=== PATIENT | male | born 1975 | race American Indian/Alaskan Native ===

== ENCOUNTER 2022-02-28 10:35 | Emergency (ER) | payer SELFPAY ==
[2022-02-28 11:12] VITALS: BP 143/99
--- NOTE | 2022-02-28 13:53 | Emergency Department Report ---
- General Chief complaint: Skin/Abscess/Foreign Body Stated complaint: LUMP/NECK AND RIGHT HAND Time Seen by Provider: 02/28/22 13:52 Source: patient Mode of arrival: Ambulatory Limitations: No Limitations - History of Present Illness Initial comments: Is a 46-year-old male that comes to the emergency room with what appears to be either a lipoma or ganglion cyst on his left wrist and his right neck area. He states that came up suddenly over the last week. He noted the one on his neck after he had his large silver chains cleaned with chemicals. He denies any fever or chills. He has never had these before. He denies history of abscess. He has no systemic symptoms. He is ambulatory, not ill nontoxic on exam MD complaint: other Tetanus Up to Date: yes Improves with: none Worsens with: none Associated symptoms: denies other symptoms Treatments Prior to Arrival: none - Related Data Previous Rx's Medication Instructions Recorded Last Taken Type Sulfamethoxazole/Trimethoprim 1 each PO BID #10 tablet 02/28/22 Unknown Rx [Bactrim DS TAB] Allergies Allergy/AdvReac Type Severity Reaction Status Date / Time No Known Allergies Allergy Verified 02/28/22 11:12 Abscess Boil HPI - HPI Chief Complaint: Skin/Abscess/Foreign Body Stated Complaint: LUMP/NECK AND RIGHT HAND Time Seen by Provider: 02/28/22 13:52 Home Medications: Previous Rx's Medication Instructions Recorded Last Taken Type Sulfamethoxazole/Trimethoprim 1 each PO BID #10 tablet 02/28/22 Unknown Rx [Bactrim DS TAB] Allergies/Adverse Reactions: Allergies Allergy/AdvReac Type Severity Reaction Status Date / Time No Known Allergies Allergy Verified 02/28/22 11:12 ED Review of Systems ROS: Stated complaint: LUMP/NECK AND RIGHT HAND Other details as noted in HPI Comment: All other systems reviewed and negative ED Past Medical Hx - Past Medical History Previous Medical History?: No - Surgical History Past Surgical History?: No - Family History Family history: no significant - Social History Smoking Status: Never Smoker Substance Use Type: None - Medications Home Medications: Home Medications Medication Instructions Recorded Confirmed Last Taken Type Sulfamethoxazole/Trimethoprim 1 each PO BID #10 tablet 02/28/22 Unknown Rx [Bactrim DS TAB] ED Physical Exam - General Limitations: No Limitations General appearance: alert, in no apparent distress - Head Head exam: Present: atraumatic, normocephalic - Eye Eye exam: Present: normal appearance - ENT ENT exam: Present: mucous membranes moist - Neck Neck exam: Present: normal inspection - Respiratory Respiratory exam: Present: normal lung sounds bilaterally. Absent: respiratory distress - Cardiovascular Cardiovascular Exam: Present: regular rate, normal rhythm. Absent: systolic murmur, diastolic murmur, rubs, gallop - GI/Abdominal GI/Abdominal exam: Present: soft, normal bowel sounds - Rectal Rectal exam: Present: deferred - Extremities Exam Extremities exam: Present: normal inspection - Back Exam Back exam: Present: normal inspection - Neurological Exam Neurological exam: Present: alert, oriented X3 - Psychiatric Psychiatric exam: Present: normal affect, normal mood - Skin Skin exam: Present: warm, dry, intact, normal color, other. Absent: rash - Expanded Skin Exam Expanded 1 - Ganglion cyst versus lipoma on wrist 2 - Lipoma appearing growth on right neck. Its not lymphatic. It is not an abscess. It is red and inflamed but the patient noticed it after he had his silver jewelry cleaned at a jeweler. ED Course Vital Signs 02/28/22 11:07 Temperature 98.9 F Pulse Rate 94 H Respiratory 98 H Rate Blood Pressure 143/99 O2 Sat by Pulse 98 Oximetry ED Medical Decision Making - Medical Decision Making Vital Signs 02/28/22 11:07 Temperature 98.9 F Pulse Rate 94 H Respiratory 98 H Rate Blood Pressure 143/99 O2 Sat by Pulse 98 Oximetry Lesion on the wrist is clearly a ganglion or lipoma. It is about pea-sized. It is not red not painful. It is mobile. Lesion on the neck is about 2 cm x 2 cm. It is red. It is tender. There is no flatulence. Given the tenderness and redness of going to treat patient with 5 days of Bactrim. I discussed definitive diagnosis and treatment with the patient including [facility] mat[facility] and plastics. He has been given referrals. Patient being discharged home with discharge plan of care including diet, activity, medications and follow-up. He verbalizes understanding. - Differential Diagnosis lipoma/ganglion cyst/abscess Critical care attestation.: If time is entered above; I have spent that time in minutes in the direct care of this critically ill patient, excluding procedure time. ED Disposition Clinical Impression: Cyst, Cellulitis Lipoma Qualifiers: Laterality: unspecified laterality Disposition: 01 HOME / SELF CARE / HOMELESS Is pt being admited?: No Does the pt Need Aspirin: No Condition: Stable Instructions: Lipoma Additional Instructions: med as ordered follow up as we discussed referrals below remove necklaces Prescriptions: Sulfamethoxazole/Trimethoprim [Bactrim DS TAB] 1 each PO BID #10 tablet Referrals: LEROY MCMAHON MD [Staff Physician] - 3-5 Days LISANDRO BEAR MD [Staff Physician] - 3-5 Days LOPEZ IVEY MD [Staff Physician] - 3-5 Days Forms: Work/School Release Form(ED) Time of Disposition: 13:56
== END 2022-02-28 14:30 | disposition home or self-care (01) ==
LOC: ED 10:35
DX: M67.432 Ganglion, left wrist (principal); L03.114 Cellulitis of left upper limb; D17.22 Benign lipomatous neoplasm of skin and subcutaneous tissue of left arm
CPT/HCPCS: 99282